=== PATIENT | male | born 1960 | race Caucasian/White ===

== ENCOUNTER 2020-04-04 07:38 | Emergency (ER) | payer OTHER ==
[~2020-04-04] VITALS: Ht 185.4 cm; Wt 90.0 kg
[2020-04-04 07:48] VITALS: BP 155/95
[2020-04-04] MEDS ORDERED: SODIUM CHLORIDE FLUSH 10ML SYR IVF ONE (08:00)
--- NOTE | 2020-04-04 08:08 | NUR ---
BIB EMS FOR ETOH AND SI/SA. PT STATES HE DRINKS 1/5 VODKA EVERYDAY. PT CALLED EMS. PT STATES HE HAS RECURRENT THOUGHTS FOR HURTING HIMSELF AND HAS PLANS TO HANG HIMSELF. PT ALSO HAS CHRONIC ITCHING AND SCRATCHES ON BACK. MD AT BEDSIDE. DENIES CP, SOB, FEVER. NO N/V/D EKG COMPLETE. PT IN GOWN. SITTER PRESENT. BELONGINGS SECURE, ROOM SECURE FOR SAFETY. BED RAILS UP X2. CALL LIGHT IN REACH. PT VSS
[2020-04-04 08:24] LABS: INTERNATIONAL NORMALIZED RATIO 1.04 (0.93-1.1)
[2020-04-04 08:29] LABS: ALANINE AMINOTRANSFERASE 63 U/L (12-78); ALBUMIN 3.8 g/dL (3.4-5.0); ANION GAP 9 mmol/L (5-15); CALCIUM 8.4 mg/dL (8.5-10.1); CHLORIDE 113 mmol/L (98-107)
[2020-04-04 08:37] LABS: ALKALINE PHOSPHATASE 176 U/L (45-117); BILIRUBIN,TOTAL 0.5 mg/dL (0.2-1.0); SALICYLATE LEVEL 2.8 mg/dL (2.8-20.0); TOTAL PROTEIN 8.3 g/dL (6.4-8.2)
[2020-04-04 08:42] LABS: MICROSCOPIC INDICATED
[2020-04-04 08:50] LABS: AMPHETAMINE SCREEN, URINE Negative (Negative); BARBITURATE SCREEN, URINE Negative (Negative); BENZODIAZEPINE SCREEN, URINE Negative (Negative); CANNABINOID SCREEN, URINE Negative (Negative); COCAINE SCREEN, URINE Negative (Negative); METHADONE SCREEN, URINE Negative (Negative); OPIATE SCREEN, URINE Negative (Negative)
[2020-04-04 08:52] LABS: MEAN CORPUSCULAR HEMOGLOBIN 34.2 pg (27.5-34.5); MEAN CORPUSCULAR HGB CONC 33.6 g/dL (33.2-36.2); MEAN CORPUSCULAR VOLUME 101.8 fL (81-97); RED BLOOD COUNT 4.44 x10^6/uL (4.38-5.82); RED CELL DISTRIBUTION WIDTH 15.3 % (9.4-14.8)
[2020-04-04 09:00] LABS: ACETONE, SERUM Negative (Negative)
[2020-04-04] MEDS ORDERED: DIPHENHYDRAMINE/ZINC CRM 2%, 30GM TP PRN (09:00)
[2020-04-04] MEDS ORDERED: LORazepam 1MG TABLET PO ONE (09:00)
[2020-04-04] MEDS ORDERED: LORazepam 1MG TABLET ONE (09:01)
[2020-04-04 09:06] LABS: MD YES; MEAN PLATELET VOLUME 6.9 fL (7.4-10.4); PLATELET COUNT 98 x10^3/uL (130-400)
[2020-04-04 09:08] LABS: <PLATELET ESTIMATE> DECREASED; <PLT MORPHOLOGY> NORMAL PLT MORPH; ANISOCYTOSIS 1+; EOS#(MANUAL) 0.17 x10^3/uL (0.0-0.4); EOS% (MANUAL) 4 % (1-7); LYMPH#(MANUAL) 2.67 x10^3/uL (1-3.4); LYMPHS% (MANUAL) 62 % (22-44); MONOS#(MANUAL) 0.13 x10^3/uL (0.3-2.7); MONOS% (MANUAL) 3 % (2-9); SEG#(MANUAL) 1.33 x10^3/uL (1.8-6.8); SEGS% (MANUAL) 31 % (42-75)
--- NOTE | 2020-04-04 09:08 | NUR ---
MEDICATED W ATIVAN PER ORDERS
[2020-04-04] MEDS ORDERED: NEOSPORIN OINT. PKT 1 PACKET ONE (09:12)
--- NOTE | 2020-04-04 10:00 | NUR ---
PT GIVEN MEAL TRAY. SITTER PRESENT.
--- NOTE | 2020-04-04 11:39 | NUR ---
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 REMINDED FREQUENTLY TO STAY IN ROOM, SITTER PRESENT.
--- NOTE | 2020-04-04 11:43 | NUR ---
PT DENYING SI/SA AT THIS TIME
--- NOTE | 2020-04-04 12:44 | NUR ---
TELECOMMUNICATION OPERATOR AT BEDSIDE.
--- NOTE | 2020-04-04 13:11 | NUR ---
TO BE DC SOON PER TRIM OPERATOR
[2020-04-04] MEDS ORDERED: NALTREXONE HCL 50 MG TABLET PO ONE (13:30)
--- NOTE | 2020-04-04 13:45 | NUR ---
Patient/Caregiver given discharge instructions and they have confirmed that they understand the instructions. Patient ambulatory with steady gait.
== END 2020-04-04 13:46 | disposition home or self-care (01) ==
LOC: ED 11:27
DX: F10.20 Alcohol dependence, uncomplicated (principal); Y90.0 Blood alcohol level of less than 20 mg/100 ml; R31.9 Hematuria, unspecified; E87.0 Hyperosmolality and hypernatremia; E87.2 Acidosis; D75.89 Other specified diseases of blood and blood-forming organs; R45.851 Suicidal ideations; R94.31 Abnormal electrocardiogram [ECG] [EKG]
CPT/HCPCS: 36415; 80053; 80307; 81001; 82010; 82140; 83605; 83690; 83880; 85025; 85610; 93005; 99284

== ENCOUNTER 2020-10-09 21:51 | Emergency (ER) | payer SELFPAY ==
[~2020-10-09] VITALS: Ht 188 cm; Wt 109.0 kg
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
--- NOTE | 2020-10-09 22:39 | NUR ---
ATTEMPTED URINE SAMPLE, PT STATES HE IS UNABLE TO AT THIS TIME. WILL REASSESS
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
[2020-10-09 23:00] LABS: BASOPHILS % (AUTO) 1 % (0-1); EOSINOPHILS % (AUTO) 1 % (1-7); LYMPHOCYTES % (AUTO) 35 % (22-44); MEAN CORPUSCULAR HEMOGLOBIN 34.5 pg (27.5-34.5); MEAN CORPUSCULAR HGB CONC 34.4 g/dL (33.2-36.2); MEAN PLATELET VOLUME 7.6 fL (7.4-10.4); MONOCYTES % (AUTO) 4 % (2-9); NEUTROPHILS % (AUTO) 59 % (42-75); PLATELET COUNT 168 x10^3/uL (130-400); RED BLOOD COUNT 4.81 x10^6/uL (4.38-5.82); RED CELL DISTRIBUTION WIDTH 13.9 % (9.4-14.8)
[2020-10-09 23:02] LABS: MD NO
[2020-10-09 23:13] LABS: ANION GAP 13 mmol/L (5-15); CALCIUM 8.5 mg/dL (8.5-10.1); CHLORIDE 112 mmol/L (98-107)
[2020-10-09 23:14] LABS: ALANINE AMINOTRANSFERASE 43 U/L (12-78); ALBUMIN 3.8 g/dL (3.4-5.0); SALICYLATE LEVEL 2.4 mg/dL (2.8-20.0)
[2020-10-09 23:15] LABS: ALKALINE PHOSPHATASE 113 U/L (45-117); BILIRUBIN,TOTAL 0.6 mg/dL (0.2-1.0); TOTAL PROTEIN 8.2 g/dL (6.4-8.2)
[2020-10-10 00:11] LABS: AMPHETAMINE SCREEN, URINE Negative (Negative); BARBITURATE SCREEN, URINE Negative (Negative); BENZODIAZEPINE SCREEN, URINE Negative (Negative); CANNABINOID SCREEN, URINE Negative (Negative); COCAINE SCREEN, URINE Negative (Negative); METHADONE SCREEN, URINE Negative (Negative); OPIATE SCREEN, URINE Negative (Negative)
[2020-10-10] MEDS ORDERED: KETAMINE 10 MG/ML, 20ML ONE (00:18)
--- NOTE | 2020-10-10 00:49 | NUR ---
PT PROVIDED MULTIPLE BLANKETS, BEAR HUGGER, AND WATER PER REQUEST. AWAITING PT TO METABOLIZE FOR PSYCH CONSULT
[2020-10-10] MEDS ORDERED: LORazepam 1MG TABLET ONE (02:39)
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
[2020-10-10] MEDS ORDERED: LORazepam 1MG TABLET PO ONE (03:30)
--- NOTE | 2020-10-10 03:46 | NUR ---
PT STILL ANXIOUS ABOUT GETTING HOME, PT EXPLAINED MULTIPLE TIMES ABOUT NEEDING TO SPEAK WITH PSYCH DOC FOR EVALUATION DUE TO PT'S SUICIDAL THOUGHTS. MD TO SPEAK WITH PT LATER, PT AGREEABLE. IN LINE OF SIGHT OF JENNIFER
--- NOTE | 2020-10-10 04:15 | NUR ---
pt getting increasingly more anxious and agitated about staying in hospital. md stated previously that he is too high risk to leave and needs to stay to be evaluated after metabolizing. cristina GREGG spoke with pt and pt agreeable to stay at this time, will talk with provider when he is back
[2020-10-10 04:25] VITALS: BP 112/71
--- NOTE | 2020-10-10 04:26 | NUR ---
SPOKE WITH PATIENT, PT STATING HE NEVER WANTED TO HARM HIMSELF AND HE WAS JUST DRUNK. PT STATES HAVING GOOD SUPPORT SYSTEM. STATES OK TO DISCHARGE
== END 2020-10-10 04:52 | disposition home or self-care (01) ==
LOC: ED 22:21
DX: F10.229 Alcohol dependence with intoxication, unspecified (principal); R45.851 Suicidal ideations; Y90.0 Blood alcohol level of less than 20 mg/100 ml
CPT/HCPCS: 80053; 80299; 80307; 80320; 80329; 82962; 85025; 99285; G0480